=== PATIENT | male | born 1975 | race Caucasian/White ===

== ENCOUNTER 2021-02-19 15:38 | Emergency (ER) | payer BC ==
[2021-02-19 16:21] VITALS: BP 122/84; PULSE 93; TEMP 99
[2021-02-19 16:41] VITALS: RESP 20
--- NOTE | 2021-02-19 16:53 | ED ---
General Adult HPI - General Chief complaint: Upper Respiratory Infection Stated complaint: Cough, COVID+ Time Seen by Provider: 02/19/21 16:31 Source: patient Mode of arrival: ambulatory Limitations: no limitations - History of Present Illness Initial comments: 45-year-old male patient presents to the emergency department today requesting monoclonal antibody infusion after testing positive for COVID-19 about a week ago. Patient states he is having nausea, vomiting, fevers, chills, body aches. States he feels like he is not getting any better. Denies significant cough or shortness of breath. Denies any diarrhea. States he has been taking ibuprofen for fevers. Patient denies any recent rash, chest pain, abdominal pain, constipation, back pain, numbness, tingling, dizziness, weakness, hematuria, dysuria, urinary urgency, urinary frequency, or any other complaints. - Related Data Previous Rx's Medication Instructions Recorded Ondansetron [Zofran ODT] 4 mg PO Q8HR PRN #10 tab 02/19/21 Allergies Allergy/AdvReac Type Severity Reaction Status Date / Time No Known Allergies Allergy Verified 02/19/21 16:21 Review of Systems ROS Statement: Those systems with pertinent positive or pertinent negative responses have been documented in the HPI. ROS Other: All systems not noted in ROS Statement are negative. Past Medical History Past Medical History: No Reported History History of Any Multi-Drug Resistant Organisms: None Reported Past Surgical History: Appendectomy Past Psychological History: No Psychological Hx Reported Smoking Status: Never smoker Past Alcohol Use History: Occasional Past Drug Use History: None Reported General Exam Limitations: no limitations General appearance: alert, in no apparent distress, other (This is a well- developed, well-nourished adult male in no acute distress.) ENT exam: Present: normal exam, normal oropharynx, mucous membranes moist Respiratory exam: Present: normal lung sounds bilaterally. Absent: respiratory distress, wheezes, rales, rhonchi, stridor Cardiovascular Exam: Present: regular rate, normal rhythm, normal heart sounds. Absent: systolic murmur, diastolic murmur, rubs, gallop, clicks GI/Abdominal exam: Present: soft, normal bowel sounds. Absent: distended, tenderness, guarding, rebound, rigid Neurological exam: Present: alert, oriented X3, CN II-XII intact Psychiatric exam: Present: normal affect, normal mood Skin exam: Present: warm, dry, intact, normal color. Absent: rash Course Vital Signs 02/19/21 02/19/21 16:17 16:40 Temperature 99 F Pulse Rate 93 Respiratory 18 20 Rate Blood Pressure 122/84 O2 Sat by Pulse 93 L Oximetry Medical Decision Making - Medical Decision Making 45-year-old male patient presents to the emergency department today requesting monoclonal antibody infusion. His been having symptoms for the last 9 or 10 days. A copy of his positive result was bit on the chart. Physical examination is unremarkable. He did receive the infusion without any difficulties or reactions. He'll be discharged follow-up with the primary care physician for recheck in 1-2 days. Return parameters were discussed in detail. He verbalizes understanding and agrees with this plan. My attending is Dr. Dong. Disposition Clinical Impression: COVID-19 Disposition: HOME SELF-CARE Condition: Good Instructions (If sedation given, give patient instructions): Coronavirus Disease 2019 (COVID-19) Additional Instructions: Tips to help you feel better: -Maintain adequate fluid intake - especially water. -Rest, you are healing your body will require extra sleep. -Eat even if you do not feel like it - broth, jello, toast are fine if you cannot eat full meals. -Take tylenol and motrin alternating (if you have no allergies or have not been instructed to avoid these medications) to help with body aches and fevers. -Obtain over the counter vitamin C, zinc, and vitamin D3. -Take medications as prescribed. Follow-up with your primary care physician for recheck in 1-2 days. Return for any new, worsening, or concerning symptoms. Prescriptions: Ondansetron [Zofran ODT] 4 mg PO Q8HR PRN #10 tab PRN Reason: Nausea Is patient prescribed a controlled substance at d/c from ED?: No Referrals: None,Stated [Primary Care Provider] - 1-2 days Time of Disposition: 17:15
[2021-02-19] MEDS ORDERED: SODIUM CHLORIDE 0.9% 50 ML IVPB ONE (17:15)
[2021-02-19] MEDS ORDERED: BAMLANIVIMAB (EUA) 700 MG, ETESEVIMAB (EUA) 1,400 MG in SODIUM CHLORIDE 0.9% 50 ML IVPB ONE (17:45)
== END 2021-02-19 19:25 | disposition home or self-care (01) ==
LOC: EC 15:38
DX: U07.1 COVID-19 (principal)
CPT/HCPCS: 99283; J3490

== ENCOUNTER → 2021-02-26 | Outpatient (CLI) | payer BC ==
--- NOTE | 2021-02-26 15:30 | XR ---
EXAMINATION TYPE: XR chest 2V DATE OF EXAM: 02/26/2021 COMPARISON: None HISTORY: 45-year-old male R06.02 TECHNIQUE: Frontal and lateral views FINDINGS: Heart normal size. Slightly low lung volumes. Diffuse interstitial density. Streaky left basilar atel ectasis. More focal patchy right basilar opacity. No pleural effusion. IMPRESSION: 1. Diffuse interstitial change. Findings may be seen with bronchitis, asthma, or COVID pneumonia. Cli nically correlate. 2. More focal patchy posterior right basilar atelectasis versus pneumonia.
== END | disposition home or self-care (01) ==
LOC: RADXRMAIN 14:50
PROVIDERS: ATTEND Physician Assistant Medical
DX: J84.89 Other specified interstitial pulmonary diseases (principal)
CPT/HCPCS: 71046